=== PATIENT | male | born 1955 | race Caucasian/White ===

== ENCOUNTER 2021-12-17 01:19 | Day surgery (SDC) | payer OTHER, SELFPAY ==
[2021-12-07 11:31] VITALS: BMI 26.5
--- NOTE | 2021-12-14 10:39 | SUR.PREOP ---
[id number] spoke with the patient and instructed the patient to not take the magnesium citrate due to the recall. Patient voiced understanding.
[2021-12-17 10:53] VITALS: BP 139/68; PULSE 79; RESP 18; TEMP 36.3; O2SAT 99
--- NOTE | 2021-12-17 10:56 | WPDANESEPPF ---
Anes - Initial Pre Proc Eval Procedure: Operation Date: 12/17/21 12:30 Proposed Procedures p Colonoscopy - Víctor Varela MD Date/Time: 12/17/21 10:56 Surgeon: Víctor Varela MD Pre Op Diagnosis: occult GI bleed Patient Data Age: 66 Gender: M Height: 1.8 m Weight: 83.7 kg Last Vital Signs Temp 97.4 F L 12/17/21 10:53 Pulse 79 12/17/21 10:53 Resp 18 12/17/21 10:53 BP 139/68 12/17/21 10:53 Pulse Ox 99 12/17/21 10:53 O2 Del Method Room Air 12/17/21 10:53 Allergies Allergy/AdvReac Type Severity Reaction Status Date / Time No Known Allergies Allergy Mild Verified 12/17/21 10:52 Home Medications Medication Instructions Recorded Confirmed Type atorvastatin 20 mg tablet 20 mg PO DAILY #90 tabs 12/06/21 12/17/21 Rx Patient hx anesthesia problems: none Family hx anesthesia problems: none Results Review: All pre-operative results and documents have been reviewed as part of the pre-operative evaluation. [facility] Past Medical History Medical History (Updated 12/06/21 @ 05:54 by Brain Salmon MD) History of melanoma Surgical History Surgical History (Updated 12/04/21 @ 06:29 by Brain Salmon MD) History of umbilical hernia repair (~2006) Twice in 1 year Hx of melanoma excision (09/2021) Family History Family History (Updated 12/03/21 @ 10:08 by Daniella Givens MA) Father Hypertension Mother Melanoma Social History Social History (Updated 12/03/21 @ 10:09 by Daniella Givens MA) Smoking status: Never smoker Second hand tobacco smoke exposure: No Alcohol intake: current Drinks per week: 6 Substance use: never Substance use type: does not use Living arrangements: with friend(s) Gender identity (if verbalized by the patient): Male Sexual Orientation (if Verbalized by the Patient): Straight or Heterosexual Spiritual care concerns: No Anes - Eval Final PreProcedure Day of Procedure 12/17/21 10:56 Airway: Mallampati scale class II ASA classification: II Anesthesia type and monitoring: general GIVS Results Review: All pre-operative results and documents have been reviewed as part of the pre-operative evaluation. Informed Consent: The patient's anesthetic plan and its attendant risks and benefits were discussed with the patient/family/POA. Questions were solicited and answers provided to the satisfaction of the patient/family/POA.
[2021-12-17] MEDS: LACTATED RINGERS 1,000 ML 150 ML IV CONT (10:57)
--- NOTE | 2021-12-17 11:25 | P.HP_ITS ---
H&P: HPI History of Present Illness Date/Time: 12/17/21 11:25 Chief Complaint: occult blood in stool. Narrative: This is a 66-year-old white male patient referred for colonoscopy. Patient reports occasional bright red blood per rectum with wiping. Stool Hemoccult was found to be positive. Patient states that his weight appetite and bowel movements are normal. He denies abdominal pain. Family history is significant his father had colon polyps. Patient presents today for neoplasia screening colonoscopy Review of Systems Review of Systems: review of systems noncontributory. FOR[facility]LY [facility] Past Medical History Medical History (Updated 12/17/21 @ 11:27 by Víctor Varela MD) History of melanoma Surgical History Surgical History (Updated 12/04/21 @ 06:29 by Brain Salmon MD) History of umbilical hernia repair (~2006) Twice in 1 year Hx of melanoma excision (09/2021) Family History Family History (Updated 12/03/21 @ 10:08 by Daniella Givens MA) Father Hypertension Mother Melanoma Social History Social History (Updated 12/03/21 @ 10:09 by Daniella Givens MA) Smoking status: Never smoker Second hand tobacco smoke exposure: No Alcohol intake: current Drinks per week: 6 Substance use: never Substance use type: does not use Living arrangements: with friend(s) Gender identity (if verbalized by the patient): Male Sexual Orientation (if Verbalized by the Patient): Straight or Heterosexual Spiritual care concerns: No Meds Home Medications and Allergies Home Medications Medication Instructions Recorded Confirmed Type atorvastatin 20 mg tablet 20 mg PO DAILY #90 tabs 12/06/21 12/17/21 Rx Allergies Allergy/AdvReac Type Severity Reaction Status Date / Time No Known Allergies Allergy Mild Verified 12/17/21 10:52 Vital Signs Vital Signs - 24 hr 12/17/21 10:53 Temperature 97.4 F L Pulse Rate 79 Respiratory Rate 18 Blood Pressure 139/68 Pulse Oximetry 99 Oxygen Delivery Room Air Exam Narrative: Physical exam reveals patient to be alert. Vital signs stable. HEENT exam is unremarkable. Patient is anicteric. Lungs are clear to auscultation and percussion. Heart is without murmur or extra sounds. Abdomen bowel sounds present soft nontender with no organomegaly. Digital external rectal exam is normal. Assessment and Plan Assessment and plan (1) Occult blood in stools: Code(s): R19.5 - Other fecal abnormalities Status: Acute Assessment and Plan: Patient with occasional bright red blood with wiping found to have occult blood in stool. Plan is for neoplasia screening. High fiber supplements are encouraged. Further recommendations will be given after endoscopy. (2) Family history of colonic polyps: Code(s): Z83.71 - Family history of colonic polyps Status: Acute Assessment and Plan: Patient reports that his father had colon polyps. For this reason consider follow-up colonoscopy in 5 years in the future.
[2021-12-17 12:00] VITALS: BP 106/67; PULSE 70; RESP 23; O2SAT 99
[2021-12-17 12:10] VITALS: BP 120/74; PULSE 70; RESP 28; O2SAT 99
[2021-12-17 12:20] VITALS: BP 129/72; PULSE 69; RESP 26; O2SAT 99
== END 2021-12-17 12:27 | disposition home or self-care (01) ==
PROVIDERS: PCP Family Medicine Adolescent Medicine; Visit Provider Internal Medicine Gastroenterology
PROC: 0DJD8ZZ Inspection of Lower Intestinal Tract, Via Natural or Artificial Opening Endoscopic (ICD-10-PCS; CPT 45378; principal; 2021-12-17 12:30)
DX: Z12.11 Encounter for screening for malignant neoplasm of colon (principal); D12.2 Benign neoplasm of ascending colon; D12.5 Benign neoplasm of sigmoid colon; K92.1 Melena; D12.3 Benign neoplasm of transverse colon; K64.8 Other hemorrhoids; K57.30 Diverticulosis of large intestine without perforation or abscess without bleeding; K63.5 Polyp of colon; Z83.71 Family history of colonic polyps
CPT/HCPCS: 45385; 88305; J2704; J7120